=== PATIENT | female | born 1965 | race Hispanic/Latino ===

== ENCOUNTER 2016-12-30 13:13 | Outpatient (CLI) | payer OTHER ==
--- NOTE | 2016-12-30 16:13 | Mammography Report ---
BILATERAL DIGITAL SCREENING MAMMOGRAM with CAD: 12/30/16 13:13:00 CLINICAL: Routine screening. COMPARISON: None available. FINDINGS: There are bilateral scattered areas of fibroglandular density.No mass, architectural distortion or suspicious calcifications. IMPRESSION: No mammographic evidence of malignancy. BI-RADS CATEGORY: 1 -- Negative RECOMMENDATION: Routine mammographic screening in one year. COMMENT: Patient follow-up letters are generated by our [employer] application.
== END 2016-12-30 13:14 | disposition home or self-care (01) ==
LOC: MAMMO 13:13
PROVIDERS: ATTEND Advanced Practice Midwife
DX: Z12.31 Encounter for screening mammogram for malignant neoplasm of breast (principal)
CPT/HCPCS: 77067; G0202

== ENCOUNTER 2017-05-17 12:21 | Emergency (ER) | payer OTHER ==
[2017-05-17 12:31] VITALS: BP 153/97
--- NOTE | 2017-05-17 13:32 | Emergency Department Report ---
Chief Complaint: Neuro Symptoms/Deficit Stated Complaint: HEADACHE/FACIAL/THROAT NUMB Time Seen by Provider: 05/17/17 13:31 - HPI History of Present Illness: Patient here reports that she is having facial numbness to the left side of her face she said she had similar episode and she went to a doctor today the family to the hospital because she was having increasing numbness that started again. She says she's had similar episode and she was told that she had a history of TIA in the past and she was seen at this hospital for similar issue. She is also complaining a headache and generalized pain to the left side of her body and she reports numbness is on her left facial area and left side of her body. Pain is 6 out of 10. Patient had a hysterectomy in the past. I pulled up records from 2013 and patient was seen in this emergency room and had CT scan of the head which was normal. She was also seen by Dr. Somers while she was in the hospital was a neurologist and diagnosed her with migraine with aura and was discharged from this hospital. See previous hospital visit in 2013 for details - ROS Review of Systems: All systems are negative unless stated in HPI above - Exam Vital Signs: Vital Signs 05/17/17 12:26 Temperature 98.3 F Pulse Rate 79 Respiratory 18 Rate Blood Pressure 153/97 O2 Sat by Pulse 98 Oximetry Physical Exam: Gen.: This is a 51-year-old female well-nourished well-developed in no acute distress. MINI neurological exam GCS 15, no facial drooping. Normal sensation. Speech is clear and fluid. Eyes: Bilateral pupils equal and reactive to light, bilateral EOM intact. Normal accommodation. Sclera and conjunctiva is normal. MSE screening note: Focused history and physical exam performed. Due to findings the following was ordered: ED Medical Decision Making - Medical Decision Making MDM: Patient screened by provider in triage area. Appropriate protocol initiated and patient to be seen in main ED by ED Disposition for MSE Condition: Stable Referrals: PRIMARY CARE, [Primary Care Provider] - 3-5 Days
--- NOTE | 2017-05-17 16:22 | Cat Scan Report ---
CT HEAD WITHOUT CONTRAST INDICATION: Headache, numbness. COMPARISON: 06/15/2014. FINDINGS: Noncontrast head CT demonstrates normal ventricles and sulci without acute or recent infarct, hemorrhage, mass effect or midline shift. Minimal benign basal ganglia calcifications. No abnormal extra-axial fluid collections. Posterior fossa structures and basilar cisterns appear within normal limits. Symmetric eye globes. Left posterior ethmoid air cell opacification is new. Clear remainder imaged paranasal sinuses and mastoid air cells. Stable 6 mm right ethmoid osteoma and slight nasal septal deviation with partially imaged rightward nasal septal spur. Intact calvarium. Normal overlying scalp soft tissues. Few radiopaque dental material incidentally noted. CONCLUSION: No acute intracranial CT abnormality with few other findings, as described. Thank you for the opportunity to participate in this patient's care.
[2017-05-17 16:33] LABS: Alanine Aminotransferase 25 units/L (7-56); Albumin 4.3 g/dL (3.9-5); Albumin/Globulin Ratio 1.5 %; Alkaline Phosphatase 91 units/L (35-129); Anion Gap 16 mmol/L; BUN/Creatinine Ratio 17; Blood Urea Nitrogen 10 mg/dL (7-17); Calcium 9.4 mg/dL (8.4-10.2); Carbon Dioxide 28 mmol/L (22-30); Chloride 101.6 mmol/L (98-107); Glucose 74 mg/dL (65-100); Sodium 141 mmol/L (137-145); Total Protein 7.2 g/dL (6.3-8.2)
[2017-05-17 16:43] LABS: Basophils % (Auto) 0.4 % (0.0-1.8); Eosinophils % (Auto) 0.6 % (0.0-4.3); Hemoglobin 14.2 gm/dl (10.1-14.3); Mean Corpuscular HGB Conc 32 % (30-34); Mean Corpuscular Hemoglobin 30 pg (28-32); Mean Corpuscular Volume 93 fl (79-97); Platelet Count 346 K/mm3 (140-440); Red Blood Count 4.75 M/mm3 (3.65-5.03); White Blood Count 8.1 K/mm3 (4.5-11.0)
== END 2017-05-18 02:02 | disposition left against medical advice (07) ==
LOC: ED 12:21
DX: R51 Headache (principal); Z53.21 Procedure and treatment not carried out due to patient leaving prior to being seen by health care provider
CPT/HCPCS: 36415; 70450; 80053; 83735; 85025; 86140

== ENCOUNTER 2019-03-31 17:52 | Inpatient (IN) | payer OTHER ==
[2019-03-31 18:19] LABS: Basophils % (Auto) 0.5 % (0.0-1.8); Eosinophils # (Auto) 0.1 K/mm3 (0.0-0.4); Eosinophils % (Auto) 0.7 % (0.0-4.3); Hematocrit 42.8 % (30.3-42.9); Hemoglobin 14.7 gm/dl (10.1-14.3); Lymphocytes # (Auto) 2.2 K/mm3 (1.2-5.4); Lymphocytes % (Auto) 24.5 % (13.4-35.0); Mean Corpuscular HGB Conc 34 % (30-34); Mean Corpuscular Volume 91 fl (79-97); Monocytes # (Auto) 0.7 K/mm3 (0.0-0.8); Monocytes % (Auto) 7.3 % (0.0-7.3); Platelet Count 345 K/mm3 (140-440); Red Blood Count 4.71 M/mm3 (3.65-5.03); Red Cell Distribution Width 13.9 % (13.2-15.2)
--- NOTE | 2019-03-31 18:20 | Emergency Department Report ---
ED General Adult HPI - General Chief complaint: Neuro Symptoms/Deficit Stated complaint: CHEST PAIN/LFT PAIN/NUMB TINGLE Time Seen by Provider: 03/31/19 18:02 Source: patient Mode of arrival: Ambulatory Limitations: No Limitations - History of Present Illness Initial comments: [facility] [employer] Date of Service: 03/31/2019 18:01:52 Impression: Left sided pain and numbness with chest pain Comments: No focal deficits on exam. Normal CT head. Concern for cardiac cause more then neurologic. Work up per ED MD. Metrics: Last Known Well: 03/31/2019 17:00:00 [employer] Notification Time: 03/31/2019 18:01:13 Arrival Time: 03/31/2019 17:52:00 Stamp Time: 03/31/2019 18:01:52 Time First Login Attempt: 03/31/2019 18:05:15 Video Start Time: 03/31/2019 18:05:15 Symptoms: left sided pain and numbness NIHSS Start Assessment Time: 03/31/2019 18:08:00 Patient is not a candidate for tPA. Patient was not deemed candidate for tPA thrombolytics because of No focal neurologic symptoms. Video End Time: 03/31/2019 18:17:49 CT head showed no acute hemorrhage or acute core infarct. CT head was reviewed. Advanced imaging was not obtained as the presentation was not suggestive of Large Vessel Occlusive Disease. ER physician notified of the decision on thrombolytics management. Disposition: Sign Out Sign Out: Discussed with Emergency Department Provider History of Present Illness: Patient is a 53 years old Female. Patient was brought by private transportation with symptoms of left sided pain and numbness 53 yo F with history of TIA and ovarian cancer Patient noticed pain, numbness on her left side and she was having chest and back pain as well. She took 3 aspirin and went to work where they brought her in. Patient states that she got chest pain and her whole left sided started hurting and she was dizzy. She was talking to her mom on the phone who thought that she was talking funny. Her left side went numb as well. And now her left face is hurting. She is still having left face and body numbness. CT head showed no acute hemorrhage or acute core infarct. CT head was reviewed. Examination: 1A: Level of Consciousness - Alert; keenly responsive + 0 1B: Ask Month and Age - Both Questions Right + 0 1C: Blink Eyes & Squeeze Hands - Performs Both Tasks + 0 2: Test Horizontal Extraocular Movements - Normal + 0 3: Test Visual Fraire - No Visual Loss + 0 4: Test Facial Palsy (Use Grimace if Obtunded) - Normal symmetry + 0 5A: Test Left Arm Motor Drift - No Drift for 10 Seconds + 0 5B: Test Right Arm Motor Drift - No Drift for 10 Seconds + 0 6A: Test Left Leg Motor Drift - No Drift for 5 Seconds + 0 6B: Test Right Leg Motor Drift - No Drift for 5 Seconds + 0 7: Test Limb Ataxia (FNF/Heel-Blancas) - No Ataxia + 0 8: Test Sensation - Normal; No sensory loss + 0 9: Test Language/Aphasia - Normal; No aphasia + 0 10: Test Dysarthria - Normal + 0 11: Test Extinction/Inattention - No abnormality + 0 NIHSS Score: 0 Patient was informed the Neurology Consult would happen via TeleHealth consult by way of interactive audio and video telecommunications and consented to receiving care in this manner. Due to the immediate potential for life-threatening deterioration due to underlying acute neurologic illness, I spent 35 minutes providing critical care. This time includes time for face to face visit via telemedicine, review of medical records, imaging studies and discussion of findings with providers, the patient and/or family. Dr Deepika Langston [employer] - Related Data Home Medications Medication Instructions Recorded Confirmed Last Taken Acetaminophen/Diphenhydramine [Eq 2 each PO QHS PRN 10/27/13 10/26/17 Unknown Acetaminophen Pm Caplet] Aspirin 325 mg PO Q6H PRN 10/27/13 10/26/17 Unknown Previous Rx's Medication Instructions Recorded Last Taken Type Famotidine [Pepcid] 20 mg PO BID #20 tablet 10/26/17 Unknown Rx Allergies Allergy/AdvReac Type Severity Reaction Status Date / Time azithromycin [From Zithromax] Allergy Swelling Verified 03/31/19 17:55 influenza virus vaccine, Allergy Anaphylaxis Verified 03/31/19 17:55 specific [Influenza Virus Vacc,Specific] sulfamethoxazole Allergy Swelling Verified 03/31/19 17:55 [From Bactrim] trimethoprim [From Bactrim] Allergy Swelling Verified 03/31/19 17:55 ED Review of Systems ROS: Stated complaint: CHEST PAIN/LFT PAIN/NUMB TINGLE Other details as noted in HPI ED Past Medical Hx - Past Medical History Hx Congestive Heart Failure: No Hx Diabetes: No Hx Asthma: No Hx COPD: No Additional medical history: TIA - Surgical History Additional Surgical History: hysterectomy 2001 - Social History Smoking Status: Never Smoker Substance Use Type: None - Medications Home Medications: Home Medications Medication Instructions Recorded Confirmed Last Taken Type Acetaminophen/Diphenhydramine [Eq 2 each PO QHS PRN 10/27/13 10/26/17 Unknown History Acetaminophen Pm Caplet] Aspirin 325 mg PO Q6H PRN 10/27/13 10/26/17 Unknown History Famotidine [Pepcid] 20 mg PO BID #20 tablet 10/26/17 Unknown Rx ED Physical Exam - General Limitations: No Limitations Critical care attestation.: If time is entered above; I have spent that time in minutes in the direct care of this critically ill patient, excluding procedure time. ED Disposition Clinical Impression: Headache Disposition: OP ADMIT IP TO THIS HOSP Is pt being admited?: Yes Condition: Stable
[2019-03-31 18:28] LABS: INR 0.95 (0.87-1.13)
[2019-03-31 18:30] LABS: Partial Thromboplastin Time 34.4 Sec. (24.2-36.6)
--- NOTE | 2019-03-31 18:30 | Cat Scan Report ---
CT head/brain wo con INDICATION / CLINICAL INFORMATION: 53 years Female; MAIN: CODE STROKE CALL [phone]. TECHNIQUE: Routine CT head without contrast. All CT scans at this location are performed using CT dos e reduction for ALARA by means of automated exposure control. COMPARISON: 05/17/2017 FINDINGS: BRAIN / INTRACRANIAL CONTENTS: No acute hemorrhage, mass effect, midline shift, hydrocephalus, or acu te, large territorial infarct. No chronic infarct or focal atrophy. Normal brain volume and ventricul ar/sulcal size for age. No significant white matter abnormality. CRANIOCERVICAL JUNCTION: No significant abnormality. ORBITS: No significant abnormality of visualized orbits. SINUSES / MASTOIDS: Osteoma seen in the ethmoids on the right. ADDITIONAL FINDINGS: None. IMPRESSION: 1. No focal mass, hemorrhage, hydrocephalus, or acute, large territorial infarct. This exam was performed as part of a code stroke protocol. The exam was completed at 5:15 PM on 2018. The exam was reviewed at 5:[address] Aguilera was notified at 5:23 PM. Signer Name: Tramaine Guerrier MD, III Signed: 03/31/2019 6:26 PM Workstation Name: [id number]
--- NOTE | 2019-03-31 18:40 | Emergency Department Report ---
ED Neuro Deficit HPI - General Chief Complaint: Neuro Symptoms/Deficit Stated Complaint: CHEST PAIN/LFT PAIN/NUMB TINGLE Time Seen by Provider: 03/31/19 18:02 Source: patient Mode of arrival: Ambulatory Limitations: No Limitations - History of Present Illness Initial Comments: 53-year-old female presents to ED as a stroke alert. Patient states symptom onset was approximately 2 hours ago. Patient states she was driving and talking on the phone when she noticed that she was "talking funny". Patient states it sounded as if she was "talking into a barrel." Patient reported at that time she also felt dizzy, began to have sharp chest pain, jaw pain, and left-sided pain to her left arm and left leg. Patient denies weakness to extremities. Patient also reported headache and associated numbness to the left side. Reports numbness and tingling to her Tylenol and also shortness of breath. Patient states the numbness and tingling currently resolved. But she still reports some pain to her jaw. Patient reports only history is remote history of uterine cancer while in her 30s. She is status post hysterectomy. Also reports a history of herniated cervical disks. Patient denies tobacco, ethanol, drug use. Patient reports she took 4 baby aspirin prior to ED arrival. -: hour(s) (2) Location: speech, left face, left arm, left leg History of same: No Place: other (while driving) Severity: moderate Quality: numb, tingling Improves With: none Worsens With: none On Anticoagulants: No Context: sudden onset Associated Symptoms: chest pain, headaches, shortness of breath. denies: fever/chills, nausea/vomiting Treatments Prior to Arrival: Aspirin - Related Data Home Medications: Home Medications Medication Instructions Recorded Confirmed Last Taken Acetaminophen/Diphenhydramine [Eq 2 each PO QHS PRN 10/27/13 10/26/17 Unknown Acetaminophen Pm Caplet] Aspirin 325 mg PO Q6H PRN 10/27/13 10/26/17 Unknown Previous Rx's Medication Instructions Recorded Last Taken Type Famotidine [Pepcid] 20 mg PO BID #20 tablet 10/26/17 Unknown Rx Allergies/Adverse Reactions: Allergies Allergy/AdvReac Type Severity Reaction Status Date / Time azithromycin [From Zithromax] Allergy Swelling Verified 03/31/19 17:55 influenza virus vaccine, Allergy Anaphylaxis Verified 03/31/19 17:55 specific [Influenza Virus Vacc,Specific] sulfamethoxazole Allergy Swelling Verified 03/31/19 17:55 [From Bactrim] trimethoprim [From Bactrim] Allergy Swelling Verified 03/31/19 17:55 ED Review of Systems ROS: Stated complaint: CHEST PAIN/LFT PAIN/NUMB TINGLE Other details as noted in HPI Comment: All other systems reviewed and negative Constitutional: denies: chills, fever Respiratory: shortness of breath Cardiovascular: chest pain Gastrointestinal: denies: abdominal pain, nausea, vomiting Neurological: headache, numbness, paresthesias ED Past Medical Hx - Past Medical History Hx Congestive Heart Failure: No Hx Diabetes: No Hx Asthma: No Hx COPD: No Additional medical history: TIA - Surgical History Additional Surgical History: hysterectomy 2001 - Social History Smoking Status: Never Smoker Substance Use Type: None - Medications Home Medications: Home Medications Medication Instructions Recorded Confirmed Last Taken Type Acetaminophen/Diphenhydramine [Eq 2 each PO QHS PRN 10/27/13 10/26/17 Unknown History Acetaminophen Pm Caplet] Aspirin 325 mg PO Q6H PRN 10/27/13 10/26/17 Unknown History Famotidine [Pepcid] 20 mg PO BID #20 tablet 10/26/17 Unknown Rx ED Neuro Physical Exam - General Limitations: No Limitations General appearance: alert, in no apparent distress Suspected Stroke: Yes - Head Head exam: Present: atraumatic, normocephalic - Eye Eye exam: Present: normal appearance, PERRL, EOMI - ENT ENT exam: Present: mucous membranes moist - Neck Neck exam: Present: normal inspection - Respiratory Respiratory exam: Present: normal lung sounds bilaterally. Absent: respiratory distress - Cardiovascular Cardiovascular Exam: Present: regular rate, normal rhythm - GI/Abdominal GI/Abdominal exam: Present: soft. Absent: distended, tenderness - Extremities Exam Extremities exam: Present: normal inspection. Absent: pedal edema, calf tenderness - Neurological Exam Neurological exam: Present: alert, oriented X3, CN II-XII intact. Absent: motor sensory deficit - NIHSS Assessment Interval: Baseline 1a. Level of Consciousness: alert/keenly responsive 1b. LOC Questions: answers both correctly 1c. LOC Commands: performs tasks correctly 2. Best Gaze: normal 3. Visual: no visual loss 4. Facial Palsy: normal symmetrical movement 5b. Motor Arm Right: no drift 5a. Motor Arm Left: no drift 6a. Motor Leg Left: no drift 6b. Motor Leg Right: no drift 7. Limb Ataxia: absent 8. Sensory: normal 9. Best Language: no aphasia 10. Dysarthria: normal 11. Extinction/Inattention: no abnormality Total Score: 0 Stroke Severity: No Stroke Symptoms - Psychiatric Psychiatric exam: Present: normal affect, normal mood - Skin Skin exam: Present: warm, dry, intact, normal color ED Course Vital Signs 03/31/19 03/31/19 03/31/19 18:48 18:50 19:00 Temperature 98.3 F Pulse Rate 88 85 Respiratory 16 16 11 L Rate Blood Pressure 122/75 117/76 Blood Pressure 122/75 [Left] O2 Sat by Pulse 98 98 94 Oximetry 03/31/19 03/31/19 03/31/19 19:30 20:00 20:30 Temperature Pulse Rate 79 71 83 Respiratory 12 13 16 Rate Blood Pressure 117/73 122/75 134/74 Blood Pressure [Left] O2 Sat by Pulse 94 97 97 Oximetry 03/31/19 03/31/19 03/31/19 20:59 21:01 21:10 Temperature 98.6 F Pulse Rate 78 88 Respiratory 13 16 Rate Blood Pressure 134/74 134/74 Blood Pressure [Left] O2 Sat by Pulse Oximetry 03/31/19 03/31/19 03/31/19 21:11 21:21 21:31 Temperature Pulse Rate 78 80 76 Respiratory 12 13 16 Rate Blood Pressure 134/74 134/74 134/74 Blood Pressure [Left] O2 Sat by Pulse 96 95 Oximetry 03/31/19 21:41 Temperature Pulse Rate 74 Respiratory 15 Rate Blood Pressure 134/74 Blood Pressure [Left] O2 Sat by Pulse 93 Oximetry - Lab Data Result diagrams: 03/31/19 18:08 03/31/19 18:08 Lab Results 03/31/19 03/31/19 03/31/19 Range/Units 18:08 18:08 18:08 WBC 9.2 (4.5-11.0) K/mm3 RBC 4.71 (3.65-5.03) M/mm3 Hgb 14.7 H (10.1-14.3) gm/dl Hct 42.8 (30.3-42.9) % MCV 91 (79-97) fl MCH 31 (28-32) pg MCHC 34 (30-34) % RDW 13.9 (13.2-15.2) % Plt Count 345 (140-440) K/mm3 Lymph % (Auto) 24.5 (13.4-35.0) % Eddy % (Auto) 7.3 (0.0-7.3) % Eos % (Auto) 0.7 (0.0-4.3) % Baso % (Auto) 0.5 (0.0-1.8) % Lymph # 2.2 (1.2-5.4) K/mm3 Eddy # 0.7 (0.0-0.8) K/mm3 Eos # 0.1 (0.0-0.4) K/mm3 Baso # 0.0 (0.0-0.1) K/mm3 Seg Neutrophils % 67.0 (40.0-70.0) % Seg Neutrophils # 6.1 (1.8-7.7) K/mm3 PT 12.4 (12.2-14.9) Sec. INR 0.95 (0.87-1.13) APTT 34.4 (24.2-36.6) Sec. Thrombin Time (15.1-19.6) Sec. D-Dimer (0-234) ng/mlDDU Sodium (137-145) mmol/L Potassium (3.6-5.0) mmol/L Chloride (98-107) mmol/L Carbon Dioxide (22-30) mmol/L Anion Gap mmol/L BUN (7-17) mg/dL Creatinine (0.7-1.2) mg/dL Estimated GFR ml/min BUN/Creatinine Ratio % Glucose (65-100) mg/dL POC Glucose 91 (70-105) Calcium (8.4-10.2) mg/dL Total Bilirubin (0.1-1.2) mg/dL AST (5-40) units/L ALT (7-56) units/L Alkaline Phosphatase (35-129) units/L Troponin T (0.00-0.029) ng/mL Total Protein (6.3-8.2) g/dL Albumin (3.9-5) g/dL Albumin/Globulin Ratio % 03/31/19 03/31/19 03/31/19 Range/Units 18:08 18:08 18:08 WBC (4.5-11.0) K/mm3 RBC (3.65-5.03) M/mm3 Hgb (10.1-14.3) gm/dl Hct (30.3-42.9) % MCV (79-97) fl MCH (28-32) pg MCHC (30-34) % RDW (13.2-15.2) % Plt Count (140-440) K/mm3 Lymph % (Auto) (13.4-35.0) % Eddy % (Auto) (0.0-7.3) % Eos % (Auto) (0.0-4.3) % Baso % (Auto) (0.0-1.8) % Lymph # (1.2-5.4) K/mm3 Eddy # (0.0-0.8) K/mm3 Eos # (0.0-0.4) K/mm3 Baso # (0.0-0.1) K/mm3 Seg Neutrophils % (40.0-70.0) % Seg Neutrophils # (1.8-7.7) K/mm3 PT (12.2-14.9) Sec. INR (0.87-1.13) APTT (24.2-36.6) Sec. Thrombin Time 17.5 (15.1-19.6) Sec. D-Dimer (0-234) ng/mlDDU Sodium 141 140 (137-145) mmol/L Potassium 4.5 4.5 (3.6-5.0) mmol/L Chloride 100.1 99.6 (98-107) mmol/L Carbon Dioxide 28 29 (22-30) mmol/L Anion Gap 17 16 mmol/L BUN 14 14 (7-17) mg/dL Creatinine 0.8 0.8 (0.7-1.2) mg/dL Estimated GFR > 60 > 60 ml/min BUN/Creatinine Ratio 18 18 % Glucose 90 90 (65-100) mg/dL POC Glucose (70-105) Calcium 9.9 9.8 (8.4-10.2) mg/dL Total Bilirubin < 0.20 (0.1-1.2) mg/dL AST 22 (5-40) units/L ALT 28 (7-56) units/L Alkaline Phosphatase 97 (35-129) units/L Troponin T < 0.010 (0.00-0.029) ng/mL Total Protein 7.8 (6.3-8.2) g/dL Albumin 4.1 (3.9-5) g/dL Albumin/Globulin Ratio 1.1 % 03/31/19 Range/Units 18:20 WBC (4.5-11.0) K/mm3 RBC (3.65-5.03) M/mm3 Hgb (10.1-14.3) gm/dl Hct (30.3-42.9) % MCV (79-97) fl MCH (28-32) pg MCHC (30-34) % RDW (13.2-15.2) % Plt Count (140-440) K/mm3 Lymph % (Auto) (13.4-35.0) % Eddy % (Auto) (0.0-7.3) % Eos % (Auto) (0.0-4.3) % Baso % (Auto) (0.0-1.8) % Lymph # (1.2-5.4) K/mm3 Eddy # (0.0-0.8) K/mm3 Eos # (0.0-0.4) K/mm3 Baso # (0.0-0.1) K/mm3 Seg Neutrophils % (40.0-70.0) % Seg Neutrophils # (1.8-7.7) K/mm3 PT (12.2-14.9) Sec. INR (0.87-1.13) APTT (24.2-36.6) Sec. Thrombin Time (15.1-19.6) Sec. D-Dimer < 135.0 (0-234) ng/mlDDU Sodium (137-145) mmol/L Potassium (3.6-5.0) mmol/L Chloride (98-107) mmol/L Carbon Dioxide (22-30) mmol/L Anion Gap mmol/L BUN (7-17) mg/dL Creatinine (0.7-1.2) mg/dL Estimated GFR ml/min BUN/Creatinine Ratio % Glucose (65-100) mg/dL POC Glucose (70-105) Calcium (8.4-10.2) mg/dL Total Bilirubin (0.1-1.2) mg/dL AST (5-40) units/L ALT (7-56) units/L Alkaline Phosphatase (35-129) units/L Troponin T (0.00-0.029) ng/mL Total Protein (6.3-8.2) g/dL Albumin (3.9-5) g/dL Albumin/Globulin Ratio % - EKG Data -: EKG Interpreted by Me EKG shows normal: sinus rhythm, axis, intervals, QRS complexes, ST-T waves Rate: normal Interpretation: no acute changes - Radiology Data Radiology results: report reviewed, image reviewed - Medical Decision Making 53 yo F w/ headache, dizziness, speech changes, chest pain, jaw pain and left sided pain. Pt seen and evaluated by teleneurologist. NIHSS = 0. Not a candidate for tPA. Pt reported chest pain in addition to neuro symptoms. EKG unremarkable, troponin and d-dimer both negative. Pt took aspirin prior to ED arrival. Will admit to hospitalist for further management. - Differential Diagnosis CVA, TIA, ACS, PE, anxiety Critical care attestation.: If time is entered above; I have spent that time in minutes in the direct care of this critically ill patient, excluding procedure time. ED Disposition Clinical Impression: Headache, Acute chest pain, Dizziness Disposition: -09 OP ADMIT IP TO THIS HOSP Is pt being admited?: Yes Condition: Stable Time of Disposition: 19:19
[2019-03-31 18:42] LABS: Alanine Aminotransferase 28 units/L (7-56); Albumin 4.1 g/dL (3.9-5); BUN/Creatinine Ratio 18; Blood Urea Nitrogen 14 mg/dL (7-17); Calcium 9.8 mg/dL (8.4-10.2); Hemolysis Index 7
[2019-03-31 18:44] LABS: BUN/Creatinine Ratio 18; Blood Urea Nitrogen 14 mg/dL (7-17); Calcium 9.9 mg/dL (8.4-10.2); Hemolysis Index 6
--- NOTE | 2019-03-31 18:56 | XRay Report ---
CHEST 1 VIEW 03/31/2019 6:24 PM INDICATION / CLINICAL INFORMATION: chest pain. COMPARISON: Chest x-ray 10/25/2017 FINDINGS: SUPPORT DEVICES: None. HEART / MEDIASTINUM: No significant abnormality. LUNGS / PLEURA: No significant pulmonary or pleural abnormality. No pneumothorax. ADDITIONAL FINDINGS: No significant additional findings. IMPRESSION: 1. No acute findings. Signer Name: Samuel Hinkle MD Signed: 03/31/2019 6:52 PM Workstation Name: [id number]
--- NOTE | 2019-03-31 19:41 | History and Physical Report ---
History of Present Illness Chief complaint: I coulld not talk and my chest was hurting History of present illness: 53 YO Female with Obesity, GERD, LDD, and Uterine Cancer presents to ED for evaluation. Pt states that she experienced a sudden onset of slurred speech while driving her car and talking on the telephone. Pt also reports chest discomfort, left arm and leg tingling, jaw pain. Pt transported to [facility] via [employer] vehicle. Pt seen and evaluated in ED and found to have a neurologic deficit. A code stroke was called. Teleneurology consulted in ED. Pt deemed not to be a candidate for TPA. Pt admitted to Telemetry and initiated on CVA protocol. Neurology consulted in ED. Pt denies fever, chills, CP, Palpitations, NVD, Trauma, BRBPR, Productive Cough, skiin rash, unintentional weight loss, night sweats, prolonged travel/immobility, unilateral leg swelling, Individual/Family history of DVT/PE/Bleeding/Blood Clotting Disorders, Hemoptysis, or recent ill contacts. Prior admission on 10/25/17 reviewed. All l isted medication reconciled at time of admission. Past History Past Medical History: cancer, GERD, other (Obesity, LDD) Past Surgical History: hysterectomy Social history: single. denies: smoking, alcohol abuse Family history: hypertension Medications and Allergies Allergies Allergy/AdvReac Type Severity Reaction Status Date / Time azithromycin [From Zithromax] Allergy Swelling Verified 03/31/19 17:55 influenza virus vaccine, Allergy Anaphylaxis Verified 03/31/19 17:55 specific [Influenza Virus Vacc,Specific] sulfamethoxazole Allergy Swelling Verified 03/31/19 17:55 [From Bactrim] trimethoprim [From Bactrim] Allergy Swelling Verified 03/31/19 17:55 Home Medications Medication Instructions Recorded Confirmed Last Taken Type Acetaminophen/Diphenhydramine [Eq 2 each PO QHS PRN 10/27/13 04/01/19 Unknown History Acetaminophen Pm Caplet] Aspirin 81 mg PO DAILY PRN 10/27/13 04/01/19 03/31/19 History Review of Systems Constitutional: no weight loss, no weight gain, no fever, no chills Ears, nose, mouth and throat: no ear pain, no tinnitis, no nose pain Breasts: no change in shape, no swelling, no mass Cardiovascular: no chest pain, no orthopnea, no palpitations, no rapid/irregular heart beat, no edema Respiratory: no cough with sputum, no excessive sputum, no hemoptysis, no shortness of breath Gastrointestinal: no abdominal pain, no nausea, no vomiting, no diarrhea Genitourinary Female: no pelvic pain, no flank pain, no menorrhagia, no dysuria, no urinary frequency Musculoskeletal: leg numbness/tingling, no low back pain, no shooting leg pain Integumentary: no rash, no pruritis, no sores Neurological: weakness, numbness, change in speech, no head injury, no syncope, no migraines, no memory loss Psychiatric: no anxiety, no sleep disturbances, no change in appetite, no suicidal ideation Endocrine: no cold intolerance, no excessive thirst, no nocturia, no flushing Hematologic/Lymphatic: no easy bruising, no easy bleeding, no lymphadenopathy Allergic/Immunologic: no urticaria, no allergic rhinitis, no persistent infections Exam - Constitutional Vitals: Temp Pulse Resp BP Pulse Ox 98.3 F 85 11 L 117/76 94 03/31/19 18:48 03/31/19 19:00 03/31/19 19:00 03/31/19 19:00 03/31/19 19:00 General appearance: Present: mild distress - EENT Eyes: Present: PERRL ENT: hearing intact, clear oral mucosa - Neck Neck: Present: supple, normal ROM - Respiratory Respiratory effort: normal Respiratory: bilateral: CTA - Cardiovascular Heart Sounds: Present: S1 & S2. Absent: rub, click - Extremities Extremities: pulses symmetrical, No edema Peripheral Pulses: within normal limits - Abdominal General gastrointestinal: Present: soft, non-tender, non-distended, normal bowel sounds Female genitourinary: Present: normal - Integumentary Integumentary: Present: clear, warm, dry - Musculoskeletal Musculoskeletal: gait normal, strength equal bilaterally - Psychiatric Psychiatric: appropriate mood/affect, intact judgment & insight - Neurologic Neurologic: CNII-XII intact, moves all extremities Results - Labs CBC & Chem 7: 03/31/19 18:08 03/31/19 18:08 Labs: Abnormal lab results 03/31/19 Range/Units 18:08 Hgb 14.7 H (10.1-14.3) gm/dl Assessment and Plan - Patient Problems (1) CVA (cerebral vascular accident) Current Visit: Yes Status: Acute Qualifiers: Precerebral and cerebral artery: middle cerebral artery Laterality of affected vessel: right Plan to address problem: CVA Protocol: Admit to telemetry, Neurology consulted in ED, CT head, Carotid doppler, PT/OT/Speech therapy, Neuro Checks, Seizure precautions, Lipid panel, statin therapy, Antiplatelet therapy. (2) GERD (gastroesophageal reflux disease) Current Visit: Yes Status: Acute Qualifiers: Esophagitis presence: without esophagitis Qualified Code(s): K21.9 - Gastro-esophageal reflux disease without esophagitis Plan to address problem: PPI therapy, supportive care. Outpatient GI f/u. (3) Obesity (BMI 30.0-34.9) Current Visit: Yes Status: Acute Plan to address problem: Balanced diet, increased physical activity at discharge. (4) Uterine cancer Current Visit: Yes Status: Acute Plan to address problem: S/P Hysterectomy, F/U gwot ia/ilo intelligence support for outpatient screening and monitoring. (5) DVT prophylaxis Current Visit: Yes Status: Acute Plan to address problem: SCD to BLE while in bed, Pt ambulatory.
[2019-03-31] MEDS ORDERED: PHENERGAN PR PRN (20:17)
[2019-03-31] MEDS ORDERED: MILK OF MAGNESIA PO PRN (20:17)
[2019-03-31] MEDS ORDERED: REGLAN PO PRN (20:17)
[2019-03-31] MEDS ORDERED: ZOFRAN IV PRN (20:17)
[2019-03-31] MEDS ORDERED: DULCOLAX PR PRN (20:17)
[2019-03-31] MEDS ORDERED: SODIUM CHLORIDE FLUSH SYRINGE 10 ML IV PRN (20:17)
[2019-03-31] MEDS ORDERED: DIPHENHYDRAMINE PO PRN (20:21)
[2019-03-31] MEDS ORDERED: ACETAMINOPHEN PO PRN (20:21)
[2019-03-31] MEDS ORDERED: TYLENOL PO PRN (20:44)
[2019-03-31] MEDS ORDERED: BENADRYL PO PRN (20:46)
[2019-03-31] MEDS: TYLENOL PO PRN (22:36)
[2019-03-31] MEDS: PEPCID PO SCH (22:37)
--- NOTE | 2019-04-01 03:04 | Consultation ---
SUBJECTIVE: This is a 53-year-old black female who presents with a prior medical history of chest pain and prior history of cervicogenic migraine. The patient has allergies to AZITHROMYCIN, INFLUENZA VIRUS VACCINE and presented to the hospital with acute onset of weakness, numbness, and slurred speech. A CT scan of the head was done as a stroke alert. I reviewed over this. I do not see any evidence of any tovar or white matter abnormalities. Ventricular system is normal. Bony structures are unremarkable. No focal abnormalities are present. Based on the review of the CT, I certainly do not see any acute intracranial process. Full ER workup is being pursued, and at this point, the patient is being seen under triage and has received aspirin. She had been on famotidine and also diphenhydramine as active orders in the past. The patient is currently pending assessment and review of her labs at that point. JOB# [id number] DANIELA/NTS
[2019-04-01] MEDS: TYLENOL PO PRN ×2 (10:45→19:57)
[2019-04-01] MEDS: PEPCID PO SCH ×2 (10:45→22:10)
[2019-04-01] MEDS: ASPIRIN PO SCH (10:45)
--- NOTE | 2019-04-01 11:43 | Vascular Lab Report ---
VL CAROTID DUPLEX BILAT INDICATION / CLINICAL INFORMATION: stroke. COMPARISON: None available. FINDINGS: Minimal plaque is seen bilaterally. Peak systolic loss of the is 79 on the right and 81 on the left. End-diastolic velocity is 28 on the right and 38 on the left. Systolic velocity ratio is 1.0 bilatera lly. Antegrade flow seen in both vertebral arteries. IMPRESSION: 20-30% stenosis of both internal carotid arteries based on velocity criteria similar to the NASCET cr iteria. No hemodynamically significant stenosis. Signer Name: Mike Hall MD FACR Signed: 04/01/2019 11:39 AM Workstation Name: [id number]
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
--- NOTE | 2019-04-01 16:37 | Progress Note ---
Assessment and Plan - Patient Problems (1) CVA (cerebral vascular accident) Current Visit: Yes Status: Acute Qualifiers: Precerebral and cerebral artery: middle cerebral artery Laterality of affected vessel: right Plan to address problem: She does not appear to ahead a CVA. I think this is ruled out. MRI is pending however. Once complete O discharge. Potential for a migraine causing this etiology. Consider preventative migraine medicine versus abortive migraine medicine. (2) GERD (gastroesophageal reflux disease) Current Visit: Yes Status: Resolved Qualifiers: Esophagitis presence: without esophagitis Qualified Code(s): K21.9 - Gastro-esophageal reflux disease without esophagitis (3) Headache Current Visit: Yes Status: Acute Plan to address problem: Headache patient has migraine headaches and subsequent auras prior to this. Could be potentially the cause of left-sided weakness which has resolved now. Patient state at admission time this happened she did have a headache behind her eye. (4) Cervicogenic migraine Current Visit: No Status: Acute History Interval history: Patient feels better today. Patient does state that one symptoms happened she had a migraine. Patient does suffer from migraines and can have different course. Discussed with her and is potential migraine pain etiology of her problem. Hospitalist Physical - Constitutional Vitals: Temp Pulse Resp BP Pulse Ox 98.2 F 71 18 126/74 98 04/01/19 16:25 04/01/19 16:25 04/01/19 16:25 04/01/19 16:25 04/01/19 16:25 General appearance: Present: mild distress - EENT Eyes: Present: PERRL, EOM intact ENT: hearing intact, clear oral mucosa, dentition normal - Neck Neck: Present: supple, normal ROM - Respiratory Respiratory effort: normal Respiratory: bilateral: CTA - Cardiovascular Rhythm: regular - Extremities Extremities: no ischemia, pulses intact, pulses symmetrical, No edema, normal temperature, normal color Peripheral Pulses: within normal limits - Abdominal General gastrointestinal: soft, non-tender, non-distended, normal bowel sounds - Integumentary Integumentary: Present: clear, dry - Psychiatric Psychiatric: appropriate mood/affect, intact judgment & insight, memory intact - Neurologic Neurologic: CNII-XII intact, focal deficits, moves all extremities Results - Labs CBC & Chem 7: 03/31/19 18:08 03/31/19 18:08 Labs: Laboratory Last Values WBC 9.2 K/mm3 (4.5-11.0) 03/31/19 18:08 RBC 4.71 M/mm3 (3.65-5.03) 03/31/19 18:08 Hgb 14.7 gm/dl (10.1-14.3) H 03/31/19 18:08 Hct 42.8 % (30.3-42.9) 03/31/19 18:08 MCV 91 fl (79-97) 03/31/19 18:08 MCH 31 pg (28-32) 03/31/19 18:08 MCHC 34 % (30-34) 03/31/19 18:08 RDW 13.9 % (13.2-15.2) 03/31/19 18:08 Plt Count 345 K/mm3 (140-440) 03/31/19 18:08 Lymph % (Auto) 24.5 % (13.4-35.0) 03/31/19 18:08 [place] % (Auto) 7.3 % (0.0-7.3) 03/31/19 18:08 Eos % (Auto) 0.7 % (0.0-4.3) 03/31/19 18:08 Baso % (Auto) 0.5 % (0.0-1.8) 03/31/19 18:08 Lymph # 2.2 K/mm3 (1.2-5.4) 03/31/19 18:08 [place] # 0.7 K/mm3 (0.0-0.8) 03/31/19 18:08 Eos # 0.1 K/mm3 (0.0-0.4) 03/31/19 18:08 Baso # 0.0 K/mm3 (0.0-0.1) 03/31/19 18:08 Seg Neutrophils % 67.0 % (40.0-70.0) 03/31/19 18:08 Seg Neutrophils # 6.1 K/mm3 (1.8-7.7) 03/31/19 18:08 PT 12.4 Sec. (12.2-14.9) 03/31/19 18:08 INR 0.95 (0.87-1.13) 03/31/19 18:08 APTT 34.4 Sec. (24.2-36.6) 03/31/19 18:08 17.5 Sec. (15.1-19.6) 03/31/19 18:08 < 135.0 ng/mlDDU (0-234) 03/31/19 18:20 Sodium 140 mmol/L (137-145) 03/31/19 18:08 Sodium 141 mmol/L (137-145) 03/31/19 18:08 Potassium 4.5 mmol/L (3.6-5.0) 03/31/19 18:08 Potassium 4.5 mmol/L (3.6-5.0) 03/31/19 18:08 Chloride 99.6 mmol/L (98-107) 03/31/19 18:08 Chloride 100.1 mmol/L (98-107) 03/31/19 18:08 Carbon Dioxide 28 mmol/L (22-30) 03/31/19 18:08 Carbon Dioxide 29 mmol/L (22-30) 03/31/19 18:08 16 mmol/L 03/31/19 18:08 17 mmol/L 03/31/19 18:08 BUN 14 mg/dL (7-17) 03/31/19 18:08 BUN 14 mg/dL (7-17) 03/31/19 18:08 0.8 mg/dL (0.7-1.2) 03/31/19 18:08 0.8 mg/dL (0.7-1.2) 03/31/19 18:08 Estimated GFR > 60 ml/min 03/31/19 18:08 Estimated GFR > 60 ml/min 03/31/19 18:08 18 % 03/31/19 18:08 18 % 03/31/19 18:08 Glucose 90 mg/dL (65-100) 03/31/19 18:08 Glucose 90 mg/dL (65-100) 03/31/19 18:08 POC Glucose 91 (70-105) 03/31/19 18:08 Calcium 9.8 mg/dL (8.4-10.2) 03/31/19 18:08 Calcium 9.9 mg/dL (8.4-10.2) 03/31/19 18:08 < 0.20 mg/dL (0.1-1.2) 03/31/19 18:08 AST 22 units/L (5-40) 03/31/19 18:08 ALT 28 units/L (7-56) 03/31/19 18:08 97 units/L (35-129) 03/31/19 18:08 < 0.010 ng/mL (0.00-0.029) 03/31/19 18:08 7.8 g/dL (6.3-8.2) 03/31/19 18:08 4.1 g/dL (3.9-5) 03/31/19 18:08 1.1 % 03/31/19 18:08 - Imaging and Cardiology Chest x-ray: image reviewed CT Scan - head: report reviewed, image reviewed Active Medications - Current Medications Current Medications: Generic Name Dose Route Start Last Admin Trade Name Freq PRN Reason Stop Dose Admin Acetaminophen 650 mg 03/31/19 20:17 04/01/19 10:45 Tylenol PO 650 mg Q4H PRN Administration Pain, Mild (1-3) Acetaminophen 1,000 mg 03/31/19 20:44 Tylenol PO QHS PRN insomnia Aspirin 325 mg 04/01/19 10:00 04/01/19 10:45 Aspirin PO 325 mg QDAY PER Administration Atorvastatin Calcium 40 mg 03/31/19 22:00 03/31/19 22:37 Lipitor PO 40 mg QHS PER Administration Bisacodyl 10 mg 03/31/19 20:17 Dulcolax NH QDAY PRN Constipation Diphenhydramine HCl 50 mg 03/31/19 20:46 Benadryl PO QHS PRN insomnia Famotidine 20 mg 03/31/19 22:00 04/01/19 10:45 Pepcid PO 20 mg BID PER Administration Magnesium Hydroxide 30 ml 03/31/19 20:17 Milk Of Magnesia PO Q4H PRN Constipation Metoclopramide HCl 10 mg 03/31/19 20:17 Reglan PO Q6H PRN Nausea And Vomiting Ondansetron HCl 4 mg 03/31/19 20:17 Zofran IV Q8H PRN Nausea And Vomiting Promethazine HCl 25 mg 03/31/19 20:17 Phenergan NH Q6H PRN Nausea And Vomiting Sodium Chloride 10 ml 03/31/19 20:17 Sodium Chloride Flush Syringe 10 Ml IV PRN PRN LINE FLUSH
--- NOTE | 2019-04-02 08:20 | Progress Note ---
Subjective Date of service: 04/02/19 Interval history: see prio note still suspect migraine cervical cause of headaches and neuro problems can follow up in the office post discharge Objective - Vital Sign Vital Signs - 12hr 04/01/19 04/01/19 04/02/19 21:00 23:36 02:00 Temperature 98.0 F Pulse Rate 83 68 Respiratory 18 Rate Respiratory 18 Rate [Chest] Blood Pressure 108/60 O2 Sat by Pulse 93 Oximetry 04/02/19 04:13 Temperature 98.0 F Pulse Rate 66 Respiratory 18 Rate Respiratory Rate [Chest] Blood Pressure 112/69 O2 Sat by Pulse 94 Oximetry - Laboratory Findings CBC and BMP: 03/31/19 18:08 03/31/19 18:08 Abnormal Lab Findings: Abnormal Labs 03/31/19 18:08 Hgb 14.7 H
[2019-04-02] MEDS: TYLENOL PO PRN (10:34)
[2019-04-02] MEDS: PEPCID PO SCH (10:34)
[2019-04-02] MEDS: ASPIRIN PO SCH (10:34)
--- NOTE | 2019-04-02 11:49 | Discharge Summary ---
Providers - Providers Date of Admission: 03/31/19 20:17 Date of discharge: 04/02/19 Attending physician: MARY WETZEL 03/31/19 20:17 Occupational Therapy Evaluate and Treat [CONS] Routine Comment: Reason For Exam: Neuro deficits Physical Therapy Evaluation and Treat [CONS] Routine Comment: Reason For Exam: Neuro deficits 03/31/19 20:23 Consult to Physician [CONS] Routine Comment: Consulting Provider: TERI HUNTER Physician Instructions: Reason For Exam: cva Primary care physician: RN DISCHARGE Hospitalization Condition: Good Disposition: DC-01 TO HOME OR SELFCARE - Discharge Diagnoses (1) CVA (cerebral vascular accident) Status: Acute Qualifiers: Precerebral and cerebral artery: middle cerebral artery Laterality of affected vessel: right Comment: pt r/o for cva also unlikely TIA most likely differential is migraine (2) GERD (gastroesophageal reflux disease) Status: Resolved Qualifiers: Esophagitis presence: without esophagitis Qualified Code(s): K21.9 - Gastro-esophageal reflux disease without esophagitis Comment: re ppi (3) Headache Status: Acute Comment: follow up with neurology may consider a preventive medicine for migraine 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 (4) Cervicogenic migraine Status: Acute Comment: this etioloy for her symptoms they have resolved Core Measure Documentation - Palliative Care Palliative Care/ Comfort Measures: Not Applicable - Core Measures Any of the following diagnoses?: none Exam - Constitutional Vitals: Temp Pulse Resp BP Pulse Ox 97.9 F 69 18 118/62 94 04/02/19 11:09 04/02/19 11:09 04/02/19 11:09 04/02/19 11:09 04/02/19 11:09 General appearance: Present: no acute distress, well-nourished - EENT Eyes: Present: PERRL ENT: hearing intact, clear oral mucosa - Neck Neck: Present: supple, normal ROM - Respiratory Respiratory effort: normal Respiratory: bilateral: CTA - Cardiovascular Heart Sounds: Present: S1 & S2. Absent: rub, click - Extremities Extremities: pulses symmetrical, No edema Peripheral Pulses: within normal limits - Abdominal General gastrointestinal: Present: soft, non-tender, non-distended, normal bowel sounds Female genitourinary: Present: normal - Integumentary Integumentary: Present: clear, warm, dry - Musculoskeletal Musculoskeletal: gait normal, strength equal bilaterally - Psychiatric Psychiatric: appropriate mood/affect, intact judgment & insight - Neurologic Neurologic: CNII-XII intact, moves all extremities Plan Activity: no restrictions, no driving until cleared by PCP Weight Bearing Status: Full Weight Bearing Diet: low cholesterol Follow up with: PRIMARY CARE, [Primary Care Provider] - 3-5 Days Prescriptions: Famotidine [Pepcid] 20 mg PO BID #60 tablet
[2019-04-02 12:32] VITALS: BP 125/75
== END 2019-04-02 16:00 | disposition home or self-care (01) | DRG 103 ==
LOC: ED 17:52 → 4A 20:17
PROVIDERS: ADMIT Internal Medicine; ATTEND Internal Medicine
DX: G43.809 Other migraine, not intractable, without status migrainosus (principal); K21.9 Gastro-esophageal reflux disease without esophagitis; E66.9 Obesity, unspecified; R47.81 Slurred speech; Z68.31 Body mass index [BMI] 31.0-31.9, adult; Z85.42 Personal history of malignant neoplasm of other parts of uterus; Z90.710 Acquired absence of both cervix and uterus; Z82.49 Family history of ischemic heart disease and other diseases of the circulatory system; Z88.1 Allergy status to other antibiotic agents; Z88.2 Allergy status to sulfonamides; Z79.82 Long term (current) use of aspirin; Z79.899 Other long term (current) drug therapy
CPT/HCPCS: 36415; 70450; 71045; 80048; 80053; 82962; 84484; 85025; 85379; 85610; 85670; 85730; 93005; 93010; 93306; 93880; G0378; A9270-GY